=== PATIENT | female | born 1995 | race Caucasian/White ===

== ENCOUNTER 2017-02-05 21:51 | Emergency (ER) | payer MEDICAID ==
[~2017-02-05] VITALS: Ht 165.1 cm; Wt 97.1 kg
[2017-02-05 21:55] VITALS: BP 138/83
--- NOTE | 2017-02-05 22:08 | NUR ---
TO ER OF3
--- NOTE | 2017-02-05 22:14 | NUR ---
Patient being evaluated by physician.
[2017-02-05] MEDS ORDERED: DEXAMETHASONE 10 MG/ML VIAL PO ONE (22:25)
[2017-02-05 22:45] VITALS: BP 127/77
--- NOTE | 2017-02-05 22:45 | NUR ---
Patient discharged with v/s stable. Written and verbal after care instructions given and explained. Patient alert, oriented and verbalized understanding of instructions. Ambulatory with steady gait. All questions addressed prior to discharge. ID band removed. Patient advised to follow up with PMD. Rx of [place], Naproxen, and Amoxicillin given. Patient educated on indication of medication including possible reaction and side effects. Opportunity to ask questions provided and answered.
== END 2017-02-05 22:45 | disposition home or self-care (01) ==
LOC: MED 21:51
DX: J02.9 Acute pharyngitis, unspecified (principal)
CPT/HCPCS: 99283; J1100

== ENCOUNTER 2019-01-25 21:45 | Emergency (ER) | payer MEDICAID, OTHER ==
[~2019-01-25] VITALS: Ht 167.6 cm; Wt 97.5 kg
[2019-01-25 21:54] VITALS: BP 124/80
--- NOTE | 2019-01-25 21:57 | NUR ---
PT AMBULATED TO LOBBY.
--- NOTE | 2019-01-25 22:25 | NUR ---
PT TO BED 9.
--- NOTE | 2019-01-25 22:30 | NUR ---
23/F PRESENTS TO ED WITH FAMILY, C/O SORE THROAT, X2 DAYS. PT REPORTS SIMILAR SYMPTOMS WITH TONSILITIS "EVERY MONTH." PT DENIES FEVER, N/V. AOX4, SKIN NORMAL WARM AND DRY, RR EVEN AND UNLABORED. HX CHOLECYSTECTOMY; DENIES RX OTC ADVIL WITHOUT RELIEF
--- NOTE | 2019-01-25 23:26 | NUR ---
PT LAYING IN BED, FAMILY AT BEDSIDE. RR EVEN AND UNLABORED. VSS. REPORTS 6/10 SORE THROAT AT THIS TIME. ALL NEEDS MET.
[2019-01-26 00:40] VITALS: BP 121/66
--- NOTE | 2019-01-26 00:40 | NUR ---
Patient discharged with v/s stable. Written and verbal after care instructions given and explained. Patient alert, oriented and verbalized understanding of instructions. Ambulatory with steady gait. All questions addressed prior to discharge. ID band removed. Patient advised to follow up with PMD. Rx of PREDNISONE, MOTRIN given. Patient educated on indication of medication including possible reaction and side effects. Opportunity to ask questions provided and answered.
== END 2019-01-26 00:40 | disposition home or self-care (01) ==
LOC: MED 21:45
DX: J02.9 Acute pharyngitis, unspecified (principal); Z90.49 Acquired absence of other specified parts of digestive tract
CPT/HCPCS: 99283